=== PATIENT | male | born 1945 | race Caucasian/White ===

== ENCOUNTER 2017-09-05 07:27 | Day surgery (SDC) | payer MEDICARE, MEDICAID ==
[2017-09-05] MEDS ORDERED: PROPOFOL 40 ML (09:18)
[2017-09-05] MEDS ORDERED: LIDOCAINE 2% (SDV) 5 ML INJ (09:18)
== END 2017-09-05 12:20 | disposition home or self-care (01) ==
LOC: GIL 07:27
DX: Z12.11 Encounter for screening for malignant neoplasm of colon (principal); K64.8 Other hemorrhoids
CPT/HCPCS: 45380; 88305